=== PATIENT | male | born 1950 | race Caucasian/White ===

== ENCOUNTER → 2022-03-24 11:21 | Outpatient (CLI) | payer MEDICARE, SELFPAY ==
--- NOTE | ~2022-03-24 | US_ITS ---
EXAMINATION: US soft tissue LE RT DATE: 03/24/2022 11:35 INDICATION: Localized swelling, mass or lump at the right lower limb TECHNIQUE: Multiple grayscale and Doppler ultrasound images of the region of concern at the posterior right lower leg were obtained. COMPARISON: None FINDINGS: Palpable abnormality of concern corresponds to a dilated serpiginous thrombosed superficial varicosit y. The dilated portion of the vessel extends proximally 4 cm in length and measures up to 6 mm deniz l diameter. Small amount of surrounding subcutaneous edema. No other abnormal masses or fluid collect ions identified. IMPRESSION: 1. Likely thrombophlebitis with thrombosed superficial varicosity at the site of the palpable abnorma lity. Reviewed, dictated and finalized at location A. IMPRESSION: 1. Likely thrombophlebitis with thrombosed superficial varicosity at the site o f the palpable abnormality.
== END ==
PROVIDERS: PCP Family Medicine; Visit Provider Nurse Practitioner Family
DX: R22.41 Localized swelling, mass and lump, right lower limb (principal)
CPT/HCPCS: 76882

== ENCOUNTER 2022-04-30 08:39 | Outpatient (CLI) | payer MEDICARE, SELFPAY ==
[2022-04-30 08:54] LABS: Hematocrit 40.9 % (42.0-52.0); Hemoglobin 13.4 g/dL (14.0-18.0); Mean Corpuscular HGB Conc 32.8 g/dl (32-36); Mean Corpuscular Hemoglobin 33.3 pg (26-34); Mean Corpuscular Volume 101.5 fl (80-100); Mean Platelet Volume 10.7 fl (7.4-10.4); Platelet Count Result 163 k/mm3 (150-375); Red Blood Count 4.03 M/mm3 (4.6-6.20); Red Cell Distribution Width 13.2 % (11.5-14.5); White Blood Count 4.2 K/mm3 (4.5-10.0)
[2022-04-30 09:18] LABS: Alanine Aminotransferase 46 U/L (6-50); Albumin Level 4.5 g/dL (3.5-5.1); Alkaline Phosphatase 71 U/L (38-126); Aspartate Amino Transferase 51 U/L (17-59); Bilirubin,Total 1.9 mg/dL (0.2-1.3)
== END 2022-04-30 08:40 | disposition home or self-care (01) ==
LOC: ANHLAB 08:42
PROVIDERS: PCP Family Medicine; Visit Provider Nurse Practitioner Family
DX: E78.49 Other hyperlipidemia (principal); I10 Essential (primary) hypertension
CPT/HCPCS: 36415; 80076; 85027

== ENCOUNTER 2022-05-23 09:23 | Outpatient (CLI) | payer MEDICARE, SELFPAY ==
--- NOTE | ~2022-05-23 | US_ITS ---
US abdomen limited INDICATION: Elevated liver function tests PROCEDURE: Realtime right upper abdominal ultrasound. COMPARISON: No prior studies for comparison. FINDINGS: The pancreas is normal without focal mass or pancreatic ductal dilation. Liver echotexture is normal without focal mass or intrahepatic biliary dilatation. There is normal directional flow i n the portal vein. The gallbladder is normal without stones, gallbladder wall thickening or pericholecystic fluid. Comm on bile duct measures 5 mm. There is mild intrahepatic biliary dilatation. No sonographic Gómez's si gn. IMPRESSION: 1: Mild intrahepatic biliary dilatation, nonspecific. Reviewed, dictated and finalized at location A.
== END 2022-05-23 09:24 | disposition home or self-care (01) ==
PROVIDERS: PCP Family Medicine; Visit Provider Nurse Practitioner Family
DX: R17 Unspecified jaundice (principal)
CPT/HCPCS: 76705

== ENCOUNTER 2022-06-02 15:36 | Emergency (ER) | payer MEDICARE, SELFPAY ==
--- NOTE | ~2022-06-02 | XR_ITS ---
XR finger 4th RT min 2V 06/02/2022 15:56 INDICATION: Right fourth finger pain PROCEDURE: 4 views right fourth finger COMPARISON: No prior studies for comparison. FINDINGS: Fracture, dislocation or subluxation is not identified. The soft tissues appear within norm al limits. No foreign bodies are identified. IMPRESSION: 1: NO ACUTE BONE OR JOINT ABNORMALITY IDENTIFIED. Reviewed, dictated and finalized at location A.
[2022-06-02 15:40] VITALS: BP 156/92; PULSE 59; RESP 16; TEMP 36.9; O2SAT 100
--- NOTE | 2022-06-02 16:08 | ED.EXTPRO ---
HPI - Extremity Problem General Chief complaint: Extremity Problem,Nontraumatic Stated complaint: Ring Finger Rt Hand Pain Time Seen by Provider: 06/02/22 15:45 Source: patient Mode of arrival: ambulatory Limitations: no limitations History of Present Illness HPI Narrative: 71 yo M presents with pain and swelling to PIP of R ring finger for approx. 3 wks. Pt was grabbing golf bag out of back of his car and states his golf bag slipped out of his hand and he jammed finger against headrest. Reports that he has still been able to golf and has full ROM but is developing a bump to joint of R ring finger. States he can no longer wear one of his rings due to swelling. All systems reviewed and negative except as noted above. Related Data Home Medications Medication Instructions Recorded Confirmed aspirin 81 mg tablet,delayed 81 mg PO DAILY 07/26/20 06/02/22 release (Adult Low Dose Aspirin) ascorbic acid (vitamin C) 1,000 mg 500 mg PO BID 01/14/22 06/02/22 tablet calcium carbonate 600 mg calcium 600 mg PO DAILY 01/14/22 06/02/22 (1,500 mg) tablet (Calcium) magnesium hydroxide 400 mg (170 mg 400 mg PO DAILY 01/14/22 06/02/22 magnesium) chewable tablet multivitamin 1 tablet PO DAILY 01/14/22 06/02/22 Allergies Allergy/AdvReac Type Severity Reaction Status Date / Time No Known Allergies Allergy Verified 06/02/22 15:39 Review of Systems Review of Systems: CONSTITUTIONAL: Denies fever, chills, or sweats. EYES: Denies visual changes, redness, or discharge. ENT: Denies rhinorrhea, congestion, sore throat, or otalgia. CARDIOVASCULAR: Denies chest pain, palpitations, or edema. RESPIRATORY: Denies cough or dyspnea. GASTROINTESTINAL: Denies abdominal pain, nausea, vomiting, or diarrhea. GENITOURINARY: Denies dysuria or hematuria. SKIN: Denies rash or itching. MUSCULOSKELETAL: Pain and swelling to right ring finger. NEUROLOGIC: Denies headache, numbness, or weakness. PSYCHIATRIC: Denies anxiety or depression. All other systems reviewed are negative, except as documented in HPI. [facility] Past Medical History Medical History (Updated 06/02/22 @ 16:18 by Alida Vaughn NP) Abnormal RBC BMI 24.0-24.9, adult Elevated glucose Elevated LFTs Need for shingles vaccine Screening for prostate cancer Screening, lipid Family History Family History (Updated 03/13/22 @ 15:00 by Aadn Armstrong RN) Father Malignant neoplasm of prostate Sibling Breast cancer Other Family history of malignant neoplasm of breast Hypertension Social History Social History (Updated 03/13/22 @ 15:01 by Adan Armstrong RN) Smoking status: Former smoker Tobacco type: cigarettes Alcohol intake: current Drinks per week: 14 Substance use: never Substance use type: does not use Comments At time of signature, agree with nursing past medical, surgical, social and family history. There is no relevant family history pertinent to the presenting complaint. Exam Narrative: GENERAL: This is a well-nourished, well-developed patient, in no apparent distress. HEAD: normocephalic, atraumatic. EYES: PERRL. Sclera clear/white. Vision is grossly intact. EARS: External ears normal NOSE: External nose normal NECK: Neck supple, non-tender without lymphadenopathy, masses or thyromegaly. CARDIOVASCULAR: Regular rate and rhythm without murmurs, gallops, or rubs. RESPIRATORY: Clear to auscultation. Breath sounds equal bilaterally. No wheezes, rales, or rhonchi. SKIN: warm, Dry, intact with no suspicious lesions or rash, good texture and turgor. NEURO: awake, alert, and oriented to person, place and time. There were no obvious focal neurologic abnormalities. EXTREMITIES: tenderness and swelling to R ring finger, PIP joint. ROM intact. Course Course Level of Care: Express Care Visit Vital Signs Vital signs: Vital Signs Temperature 36.9 C 06/02/22 15:40 Pulse Rate 59 L 06/02/22 15:40 Respiratory Rate 16
== END 2022-06-02 16:20 | disposition home or self-care (01) ==
PROVIDERS: Emergency Provider Nurse Practitioner Family; PCP Family Medicine
DX: S63.634A Sprain of interphalangeal joint of right ring finger, initial encounter (principal); W22.8XXA Striking against or struck by other objects, initial encounter; Z87.891 Personal history of nicotine dependence; Z79.82 Long term (current) use of aspirin
CPT/HCPCS: 29130; 73140; 99213; G0463

== ENCOUNTER 2022-07-08 11:26 | Emergency (ER) | payer MEDICARE, SELFPAY ==
[2022-07-08 11:35] VITALS: BP 168/87; PULSE 55; RESP 12; TEMP 37; O2SAT 100
--- NOTE | 2022-07-08 12:11 | ED.URI ---
HPI - URI/Sore Throat General Chief Complaint: Upper Respiratory Infection Stated Complaint: congestion, sore throat, runny nose Time Seen by Provider: 07/08/22 12:05 Source: patient, RN notes reviewed and old records reviewed Mode of arrival: ambulatory Limitations: no limitations History of Present Illness HPI Narrative: 71-year-old male presents to [facility] care with complaints of sinus congestion, scratchy throat, frontal headache,sinus pressure and post nasal drainage for one week duration. Patient reports that his symptoms started about one week ago when mold count was high and have persisted. Patient states that he has been gargling with some salt water for his throat discomfort,did take an allergy pill on Thursday which helped some. Patient denies any fevers, chills or sweats, denies any shortness of breath acute cough or any body aches. Patient reports that he has had COVID vaccinations and also flu shot this season. Patient reports that he is being worked up for anemia and has scheduled colonoscopy. MD elicited complaint: sore throat, rhinorrhea and nasal congestion Pertinent past history: seasonal allergies Onset (ago): week(s) (1) Pain scale (0-10): 1 Treatments prior to arrival: other (salt water gargles and allergy pill) Related Data Home Medications Medication Instructions Recorded Confirmed aspirin 81 mg tablet,delayed 81 mg PO DAILY 07/26/20 07/08/22 release (Adult Low Dose Aspirin) ascorbic acid (vitamin C) 1,000 mg 500 mg PO BID 01/14/22 07/08/22 tablet calcium carbonate 600 mg calcium 600 mg PO DAILY 01/14/22 07/08/22 (1,500 mg) tablet (Calcium) magnesium hydroxide 400 mg (170 mg 400 mg PO DAILY 01/14/22 07/08/22 magnesium) chewable tablet multivitamin 1 tablet PO DAILY 01/14/22 07/08/22 Allergies Allergy/AdvReac Type Severity Reaction Status Date / Time No Known Allergies Allergy Verified 06/02/22 15:39 Review of Systems Review of Systems: CONSTITUTIONAL: Denies fever, chills, or sweats. EYES: Denies visual changes, redness, or discharge. ENT: positive for rhinorrhea, congestion, scratchy sore throat, no otalgia. CARDIOVASCULAR: Denies chest pain, palpitations, or edema. RESPIRATORY: Denies cough or dyspnea. GASTROINTESTINAL: Denies abdominal pain, nausea, vomiting, or diarrhea. GENITOURINARY: Denies dysuria or hematuria. SKIN: Denies rash or itching. MUSCULOSKELETAL: Denies back pain, joint pain, or myalgia. NEUROLOGIC: Positive for frontal headache,no numbness, or weakness. PSYCHIATRIC: Denies anxiety or depression. All systems reviewed & are unremarkable except as noted in HPI and below PMFSH Past Medical History Medical History (Updated 07/10/22 @ 12:39 by Lisa Hahn NP) Abnormal RBC BMI 24.0-24.9, adult Elevated glucose Elevated LFTs Need for shingles vaccine Screening for prostate cancer Screening, lipid Seasonal allergies Surgical History Surgical History (Updated 07/10/22 @ 12:40 by Lisa Hahn NP) H/O arthroscopy of right knee Family History Family History Father Malignant neoplasm of prostate Sibling Breast cancer Other Family history of malignant neoplasm of breast Hypertension Social History Social History (Updated 07/10/22 @ 12:41 by Lisa Hahn NP) Smoking status: Former smoker Tobacco type: cigarettes Alcohol intake: current Drinks per week: 14 Substance use: never Substance use type: does not use Living arrangements: with family Occupation/Education: retired Gender identity (if verbalized by the patient): Male Comments at time of signature agree with nursing documentation of past medical, surgical, social, and family history. There is no relevant family history pertinent to presenting complaints Exam Narrative: GENERAL: Well-appearing, well-nourished, and in no acute distress. HEAD: Normocephalic, atraumatic. EYES: PERRLA and EOMI. ENT: Nares with
== END 2022-07-08 12:56 | disposition home or self-care (01) ==
PROVIDERS: Emergency Provider Registered Nurse; PCP Family Medicine
DX: J06.9 Acute upper respiratory infection, unspecified (principal); Z20.822 Contact with and (suspected) exposure to COVID-19; Z87.891 Personal history of nicotine dependence; Z79.82 Long term (current) use of aspirin
CPT/HCPCS: 87426; 99213; C9803; G0463

== ENCOUNTER 2022-09-03 11:35 | Emergency (ER) | payer MEDICARE, SELFPAY ==
[2022-09-03 11:45] VITALS: BP 135/68; PULSE 68; RESP 20; TEMP 37.5; O2SAT 100
--- NOTE | 2022-09-03 13:06 | ED.URI ---
HPI - URI/Sore Throat General Chief Complaint: Upper Respiratory Infection Stated Complaint: Cough,Sore Throat,Congestion Source: patient Mode of arrival: ambulatory History of Present Illness HPI Narrative: This is a 72-year-old male who presented to urgent care with complaints of the and chest congestion and a productive cough with brownish sputum and feeling fatigue that started on Thursday. Patient notes that he took Zyrtec and [id number] cold and cough medication. The patient denies SOB, CP, palpitation, extremity numbness, lightheadedness, dizziness, constipation, diarrhea, chills, or fever. Discharge instructions reviewed with patient, as well as provided in writing per nursing staff. The instructions also include specific and strict return/GO TO THE ER as well as f/u information. All questions have been answered, and the patient and/or family deny any further questions with discharge and discharge plan. Patient has a history of bronchitis Related Data Home Medications Medication Instructions Recorded Confirmed aspirin 81 mg tablet,delayed 81 mg PO DAILY 07/26/20 09/03/22 release (Adult Low Dose Aspirin) ascorbic acid (vitamin C) 1,000 mg 500 mg PO BID 01/14/22 09/03/22 tablet calcium carbonate 600 mg calcium 600 mg PO DAILY 01/14/22 09/03/22 (1,500 mg) tablet (Calcium) magnesium hydroxide 400 mg (170 mg 400 mg PO DAILY 01/14/22 09/03/22 magnesium) chewable tablet multivitamin 1 tablet PO DAILY 01/14/22 09/03/22 tamsulosin 0.4 mg capsule 0.4 mg PO DAILY 09/03/22 09/03/22 Allergies Allergy/AdvReac Type Severity Reaction Status Date / Time No Known Allergies Allergy Verified 09/03/22 11:44 [facility] Past Medical History Medical History (Updated 09/03/22 @ 13:06 by REYNA Lim) Abnormal RBC BMI 24.0-24.9, adult Elevated glucose Elevated LFTs Need for shingles vaccine Screening for prostate cancer Screening, lipid Seasonal allergies Surgical History Surgical History (Updated 07/10/22 @ 12:40 by Lisa Hahn NP) H/O arthroscopy of right knee Family History Family History Father Malignant neoplasm of prostate Sibling Breast cancer Other Family history of malignant neoplasm of breast Hypertension Social History Social History (Updated 07/10/22 @ 12:41 by Lisa Hahn NP) Smoking status: Former smoker Tobacco type: cigarettes Alcohol intake: current Drinks per week: 14 Substance use: never Substance use type: does not use Gender identity (if verbalized by the patient): Male Spiritual care concerns: No Exam Narrative: GENERAL: This is a well-nourished, well-developed patient, in no apparent distress. HEAD: normocephalic, atraumatic. EYES: PERRL. Sclera clear/white. Vision is grossly intact. EARS: External ears normal, auditory canals clear and without drainage, TMs normal without perforation. Hearing grossly intact. NOSE: External nose normal with no obvious nasal discharge, nares without redness, no rhinorrhea. THROAT: Mucous membranes moist, posterior pharynx clear. NECK: Neck supple, non-tender without lymphadenopathy, masses or thyromegaly. CARDIOVASCULAR: Regular rate and rhythm without murmurs, gallops, or rubs. RESPIRATORY: Clear to auscultation. Breath sounds equal bilaterally. No wheezes, rales, or rhonchi. GASTROINTESTINAL: Abdomen soft, non-tender, nondistended. Bowel sounds are active. No hepato-splenomegaly, or palpable masses. No guarding. SKIN: warm, intact with no suspicious lesions or rash, good texture and turgor. NEURO: awake, alert, and oriented to person, place and time. There were no obvious focal neurologic abnormalities. EXTREMITIES: Normal range of motion. No edema. No calf tenderness. Course Course Emergency Course: Patient will be treated for bronchitis with Augmentin he was also given Tessalon Perles along with guaifenesin and albuterol Level
== END 2022-09-03 13:08 | disposition home or self-care (01) ==
PROVIDERS: Emergency Provider Nurse Practitioner; PCP Family Medicine
DX: J40 Bronchitis, not specified as acute or chronic (principal); Z20.822 Contact with and (suspected) exposure to COVID-19; Z79.82 Long term (current) use of aspirin; Z87.891 Personal history of nicotine dependence
CPT/HCPCS: 87426; 87804; 99213; C9803; G0463

== ENCOUNTER 2022-09-11 10:23 | Day surgery (SDC) | payer MEDICARE, SELFPAY ==
[2022-08-27 12:54] VITALS: BMI 24.7
[2022-09-11 11:10] VITALS: BP 181/101; PULSE 61; RESP 20; TEMP 37; O2SAT 100; BMI 24.5
[2022-09-11] MEDS: LACTATED RINGERS 1,000 ML 150 ML IV CONT (11:18)
--- NOTE | 2022-09-11 12:00 | PM.HPGS ---
History of Present Illness History of Present Illness Consent: Risks, benefits, and alternatives have been discussed and questions answered. Patient agrees to proceed with procedure. Chief complaint: Neoplam Screening Narrative: Mango Jacques is a 72 year old male Presents for screening colonoscopy. Patient's current weight appetite and bowel movements are normal. Patient denies abdominal pain. He has had no bleeding. Family history noncontributory. Last colonoscopy 10 years ago was unremarkable. Review of Systems Review of Systems: Review of systems noncontributory. [facility] Past Medical History Medical History (Updated 09/04/22 @ 00:01 by Madeline Martínez) Abnormal RBC BMI 24.0-24.9, adult Elevated glucose Elevated LFTs Need for shingles vaccine Screening for prostate cancer Screening, lipid Seasonal allergies Surgical History Surgical History (Updated 07/10/22 @ 12:40 by Lisa Hahn NP) H/O arthroscopy of right knee Family History Family History Father Malignant neoplasm of prostate Sibling Breast cancer Other Family history of malignant neoplasm of breast Hypertension Social History Social History (Updated 07/10/22 @ 12:41 by Lisa Hahn NP) Smoking status: Former smoker Tobacco type: cigarettes Alcohol intake: current Drinks per week: 14 Substance use: never Substance use type: does not use Living arrangements: with family Gender identity (if verbalized by the patient): Male Spiritual care concerns: No Meds Home Medications and Allergies Home Medications Medication Instructions Recorded Confirmed Type aspirin 81 mg tablet,delayed 81 mg PO DAILY 07/26/20 09/11/22 History release (Adult Low Dose Aspirin) ascorbic acid (vitamin C) 1,000 mg 500 mg PO BID 01/14/22 09/11/22 History tablet calcium carbonate 600 mg calcium 600 mg PO DAILY 01/14/22 09/11/22 History (1,500 mg) tablet (Calcium) magnesium hydroxide 400 mg (170 mg 400 mg PO DAILY 01/14/22 09/03/22 History magnesium) chewable tablet multivitamin 1 tablet PO DAILY 01/14/22 09/03/22 History atorvastatin 10 mg tablet 10 mg PO DAILY #90 tabs 04/14/22 09/11/22 Rx albuterol sulfate 90 mcg/actuation 1 inh inhalation QID PRN shortness 09/03/22 09/11/22 Rx aerosol inhaler (ProAir HFA) of breath or wheezing #6.7 grams amoxicillin 500 mg-potassium 1 tablet PO Q12H 7 days #14 tabs 09/03/22 09/11/22 Rx clavulanate 125 mg tablet (Augmentin) benzonatate 200 mg capsule 200 mg PO BID PRN cough #30 caps 09/03/22 09/11/22 Rx guaifenesin 400 mg tablet 400 mg PO QID PRN congestion #30 09/03/22 09/11/22 Rx tabs tamsulosin 0.4 mg capsule 0.4 mg PO DAILY 09/03/22 09/03/22 History Allergies Allergy/AdvReac Type Severity Reaction Status Date / Time No Known Allergies Allergy Verified 09/11/22 11:13 Vital Signs Vital Signs - 24 hr 09/11/22 11:10 Temperature 98.6 F Pulse Rate 61 Respiratory Rate 20 Blood Pressure 181/101 H Pulse Oximetry 100 Oxygen Delivery Room Air Exam Narrative: Physical exam reveals patient be alert. Vital signs stable. HEENT exam is unremarkable. Patient is anicteric. Lungs are clear to auscultation and percussion. Heart is without murmur or extra sounds. Abdomen bowel sounds are present soft nontender with no organomegaly. Digital external rectal exam normal. Assessment and Plan Assessment and plan (1) Screening for malignant neoplasm of colon: Code(s): Z12.11 - Encounter for screening for malignant neoplasm of colon Status: Acute Assessment and Plan: Patient presents for screening colonoscopy. Appears to be at average risk of colon polyps. Further recommendations will be given after endoscopy.
--- NOTE | 2022-09-11 12:13 | WPDANESEPPF ---
Anes - Initial Pre Proc Eval Procedure: Operation Date: 09/11/22 12:30 Proposed Procedures p Screening Colonoscopy - Javid Mccormack MD Date/Time: 09/11/22 12:13 Surgeon: Javid Mccormack MD Pre Op Diagnosis: Neoplam Screening Patient Data Age: 72 Gender: M Height: 1.98 m Weight: 96.1 kg Last Vital Signs Temp 37.0 C 09/11/22 11:10 Pulse 61 09/11/22 11:10 Resp 20 09/11/22 11:10 BP 181/101 H 09/11/22 11:10 Pulse Ox 100 09/11/22 11:10 O2 Del Method Room Air 09/11/22 11:10 Allergies Allergy/AdvReac Type Severity Reaction Status Date / Time No Known Allergies Allergy Verified 09/11/22 11:13 Home Medications Medication Instructions Recorded Confirmed Type aspirin 81 mg tablet,delayed 81 mg PO DAILY 07/26/20 09/11/22 History release (Adult Low Dose Aspirin) ascorbic acid (vitamin C) 1,000 mg 500 mg PO BID 01/14/22 09/11/22 History tablet calcium carbonate 600 mg calcium 600 mg PO DAILY 01/14/22 09/11/22 History (1,500 mg) tablet (Calcium) magnesium hydroxide 400 mg (170 mg 400 mg PO DAILY 01/14/22 09/03/22 History magnesium) chewable tablet multivitamin 1 tablet PO DAILY 01/14/22 09/03/22 History atorvastatin 10 mg tablet 10 mg PO DAILY #90 tabs 04/14/22 09/11/22 Rx albuterol sulfate 90 mcg/actuation 1 inh inhalation QID PRN shortness 09/03/22 09/11/22 Rx aerosol inhaler (ProAir HFA) of breath or wheezing #6.7 grams amoxicillin 500 mg-potassium 1 tablet PO Q12H 7 days #14 tabs 09/03/22 09/11/22 Rx clavulanate 125 mg tablet (Augmentin) benzonatate 200 mg capsule 200 mg PO BID PRN cough #30 caps 09/03/22 09/11/22 Rx guaifenesin 400 mg tablet 400 mg PO QID PRN congestion #30 09/03/22 09/11/22 Rx tabs tamsulosin 0.4 mg capsule 0.4 mg PO DAILY 09/03/22 09/03/22 History Patient hx anesthesia problems: none Family hx anesthesia problems: none Results Review: All pre-operative results and documents have been reviewed as part of the pre-operative evaluation. [facility] Past Medical History Medical History Abnormal RBC BMI 24.0-24.9, adult Elevated glucose Elevated LFTs Need for shingles vaccine Screening for prostate cancer Screening, lipid Seasonal allergies Surgical History Surgical History H/O arthroscopy of right knee Family History Family History Father Malignant neoplasm of prostate Sibling Breast cancer Other Family history of malignant neoplasm of breast Hypertension Social History Social History Smoking status: Former smoker Tobacco type: cigarettes Alcohol intake: current Drinks per week: 14 Substance use: never Substance use type: does not use Living arrangements: with family Gender identity (if verbalized by the patient): Male Spiritual care concerns: No Anes - Eval Final PreProcedure Day of Procedure 09/11/22 12:13 Patient weight: normal Heart: regular rate and rhythm Lungs: clear to auscultation Airway: Mallampati scale class II Neurological: alert and oriented Last oral intake: >/= 8 hours ASA classification: II Emergent: no Anesthetic plan: proceed Results Review: All pre-operative results and documents have been reviewed as part of the pre-operative evaluation. Informed Consent: The patient's anesthetic plan and its attendant risks and benefits were discussed with the patient/family/POA. Questions were solicited and answers provided to the satisfaction of the patient/family/POA.
[2022-09-11 12:38] VITALS: BP 135/88; PULSE 68; RESP 16; O2SAT 99
--- NOTE | 2022-09-11 12:43 | WPDANESPN ---
Anes - Prog Note Post-Op Date/Time: 09/11/22 12:43 Cardiovascular status: normal Respiratory status: normal Airway patency: baseline Mental status: baseline Post-Op hydration status: normal Vital Signs: Last Vital Signs Temp 37.0 C 09/11/22 11:10 Pulse 61 09/11/22 11:10 Resp 20 09/11/22 11:10 BP 181/101 H 09/11/22 11:10 Pulse Ox 100 09/11/22 11:10 O2 Del Method Room Air 09/11/22 11:10 Pain Score (VAS): 0/10 I/O: Intake & Output 09/10/22 09/11/22 09/11/22 23:59 07:59 15:59 Intake Total 400 Balance 400 Patient Feedback: Patient satisfied with anesthetic care.
[2022-09-11 12:48] VITALS: BP 135/95; PULSE 56; RESP 16; O2SAT 100
[2022-09-11 12:58] VITALS: BP 149/109; PULSE 56; RESP 16; O2SAT 100
--- NOTE | 2022-09-11 12:58 | SUR.PHASEII ---
PT AWAKE AND ALERT. DENIES PAIN. DRINKING COFFEE.
== END 2022-09-11 13:11 | disposition home or self-care (01) ==
PROVIDERS: PCP Family Medicine; Visit Provider Internal Medicine Gastroenterology
PROC: 0DJD8ZZ Inspection of Lower Intestinal Tract, Via Natural or Artificial Opening Endoscopic (ICD-10-PCS; CPT 45378; principal; 2022-09-11 12:30)
DX: Z12.11 Encounter for screening for malignant neoplasm of colon (principal)
CPT/HCPCS: 45378

== ENCOUNTER 2023-02-17 13:33 | Emergency (ER) | payer MEDICARE, SELFPAY ==
[2023-02-17 13:52] VITALS: BP 120/73; PULSE 74; RESP 16; TEMP 36.2; O2SAT 99
--- NOTE | 2023-02-17 14:09 | ED.URI ---
HPI - URI/Sore Throat General Chief Complaint: Upper Respiratory Infection Stated Complaint: sorethroat,cough Time Seen by Provider: 02/17/23 14:12 Source: patient and RN notes reviewed Mode of arrival: ambulatory Limitations: no limitations History of Present Illness HPI Narrative: 72-year-old male presented for complaint of sinus congestion, postnasal drainage, sore throat, cough, and body aches over the last 4-5 days. He denies shortness of breath, wheezing, nausea, vomiting, fevers or chills. Taking aspirin for body aches and Robitussin for the cough. He denies known sick contacts. MD elicited complaint: cough Related Data Home Medications Medication Instructions Recorded Confirmed aspirin 81 mg tablet,delayed 81 mg PO DAILY 07/26/20 02/17/23 release (Adult Low Dose Aspirin) ascorbic acid (vitamin C) 1,000 mg 500 mg PO BID 01/14/22 02/17/23 tablet calcium carbonate 600 mg calcium 600 mg PO DAILY 01/14/22 02/17/23 (1,500 mg) tablet (Calcium) magnesium hydroxide 400 mg (170 mg 400 mg PO DAILY 01/14/22 02/17/23 magnesium) chewable tablet multivitamin 1 tablet PO DAILY 01/14/22 02/17/23 Allergies Allergy/AdvReac Type Severity Reaction Status Date / Time No Known Allergies Allergy Verified 02/17/23 13:46 Review of Systems Review of Systems: CONSTITUTIONAL: Endorses malaise, denies chills, sweats, fever EYES: Denies visual changes, redness, or discharge ENT: Reports rhinorrhea, congestion, otalgia, sore throat CARDIOVASCULAR: Denies chest pain, palpitations, edema RESPIRATORY: Reports cough, post nasal drainage. Denies dyspnea GASTROINTESTINAL: Denies abdominal pain, nausea, vomiting, diarrhea SKIN: Denies rash or itching MUSCULOSKELETAL: Denies myalgia NEUROLOGIC: Denies headache PMFSH Past Medical History Medical History Abnormal RBC BMI 24.0-24.9, adult Elevated glucose Elevated LFTs Need for shingles vaccine Screening for prostate cancer Screening, lipid Seasonal allergies Surgical History Surgical History H/O arthroscopy of right knee Family History Family History Father Malignant neoplasm of prostate Sibling Breast cancer Other Family history of malignant neoplasm of breast Hypertension Social History Social History Smoking status: Former smoker Tobacco type: cigarettes Alcohol intake: current Drinks per week: 14 Substance use: never Substance use type: does not use Living arrangements: with family Occupation/Education: retired Gender identity (if verbalized by the patient): Male Spiritual care concerns: No Exam Narrative: GENERAL: well-appearing, nontoxic no acute distress. HEAD: Normocephalic EYES: PERRLA, conjunctivae clear ENT: Mucous membranes moist. TMs pearly miranda with dull light reflex bilaterally; no tragal tenderness. Oropharynx without erythema,lesions or exudate, no drooling, no hoarseness, no trismus, uvula midline. No tripod positioning, muffled voice, soft palate or pharyngeal wall bulging NECK: Supple. No lymphadenopathy CHEST: Clear to auscultation, breath sounds equal. No wheezing, rhonchi, rales, or stridor. No respiratory distress, speaks in full sentences. HEART: Regular rate and rhythm. No murmur heard. SKIN: Warm, dry, no rash. NEURO: Alert and oriented x3. PSYCH: Normal mood and affect Course Course Emergency Course: Patient is aware of diagnosis, understands and agrees to treatment plan. Anticipatory guidance given. Patient agrees to follow-up as directed and is aware of reasons to seek care at the emergency department. Portions of this record may have been created with voice recognition software Level of Care: Express Care Visit Vital Signs Vital signs: Vital Signs Temperature 97.
== END 2023-02-17 14:22 | disposition home or self-care (01) ==
PROVIDERS: Emergency Provider Nurse Practitioner Family; PCP Family Medicine
DX: J06.9 Acute upper respiratory infection, unspecified (principal); Z79.82 Long term (current) use of aspirin; Z87.891 Personal history of nicotine dependence; Z20.822 Contact with and (suspected) exposure to COVID-19
CPT/HCPCS: 87081; 87426; 87880; 99213; C9803; G0463

== ENCOUNTER 2023-02-24 16:17 | Outpatient (CLI) | payer MEDICARE, SELFPAY ==
--- NOTE | ~2023-02-24 | XR_ITS ---
XR chest 2V DATE: 02/24/2023 16:30 INDICATION: Cough, congestion. Acute bronchitis. TECHNIQUE: PA and lateral views COMPARISON: None FINDINGS: There is bilateral hyperinflation with relative flattening the diaphragm and increased retr osternal airspace, consistent with COPD. Heart size is within normal range. There is aortic calcification and mild unfolding. No hilar or medi astinal enlargement is evident. There is minimal infiltrate along the minor fissure in the right upper lobe. There is minimal bluntin g of the right costophrenic angle. There is osteopenia. There is scoliosis and degenerative spurring of the thoracolumbar spine. IMPRESSION: Mild anterior segment right upper lobe infiltrate, small right pleural effusion COPD Aortic atherosclerosis Reviewed, dictated and finalized at location A. IMPRESSION: Mild anterior segment right upper lobe infiltrate, small right pleu ral effusion COPD Aortic atherosclerosis
== END 2023-02-24 16:18 | disposition home or self-care (01) ==
LOC: ANHIMG 16:20
PROVIDERS: PCP Family Medicine; Visit Provider Physician Assistant Medical
DX: J20.9 Acute bronchitis, unspecified (principal); J90 Pleural effusion, not elsewhere classified; J44.9 Chronic obstructive pulmonary disease, unspecified; I70.0 Atherosclerosis of aorta
CPT/HCPCS: 71046

== ENCOUNTER 2023-04-01 07:58 | Outpatient (CLI) | payer MEDICARE, SELFPAY ==
--- NOTE | 2023-04-01 12:45 | WPDPFTINT ---
PFT Procedure Performed PFT Procedure Performed Spirometry with Pre/Post Bronchodilator Plethysmography (Lung Vol) Diffusing Cap (DLCO) Flow Vol Loop PFT Interpretation This is a pulmonary function test with pre and post-bronchodilator spirometry, plethysmography and diffusing capacity. The test was performed and results interpreted in accordance with the 2019 and 2005 ATS/ERS Task Force guidelines respectively using the Global Lung Function Initiative-2012 reference equations. Patient demonstrated good effort and cooperation. Reproducibility criteria were met. The quality of the pre bronchodilator spirometry maneuver was Grade A and post bronchodilator spirometry maneuver was Grade A. Findings: Spirometry: The contour the inspiratory and expiratory flow tracing are normal. The pre bronchodilator FVC is 5.61 L, 104% predicted. The pre bronchodilator FEV1 is 4.00 L, 100% predicted. The FEV1: FVC ratio 71%. The post bronchodilator FVC is 5.56 L, representing a 1% decrease. The post bronchodilator FEV1 is 4.04 L, representing a 1% increase. The post bronchodilator FEV1: FVC ratio is 73%. Plethysmography: The total lung capacity is 9.04 L, 105% predicted. The functional residual capacity is 5.36 L, 114% predicted. The residual volume is 3.19 L, 109% predicted. Diffusing capacity: The diffusing capacity unadjusted for hemoglobin and carboxyhemoglobin is 29.9, 103% predicted. The diffusing capacity adjusted for alveolar volume is 3.51, 103% predicted. Impression: The spirometry is normal without evidence of an obstructive abnormality. There is no significant improvement after inhaling a single dose of albuterol. The lung volumes are normal. The diffusing capacity is normal. There are no prior studies for comparison
== END 2023-04-01 07:59 | disposition home or self-care (01) ==
LOC: ANHPFT 07:59
PROVIDERS: PCP Family Medicine; Visit Provider Physician Assistant Medical
DX: R09.89 Other specified symptoms and signs involving the circulatory and respiratory systems (principal)
CPT/HCPCS: 94060; 94726; 94729

== ENCOUNTER 2023-05-28 10:31 | Outpatient (CLI) | payer MEDICARE, SELFPAY ==
--- NOTE | 2023-06-02 15:58 | WPDHOLTEREM ---
Holter/Event Monitor Holter/Event Monitor Date of procedure: 05/28/23 Holter/Event Procedure: 24 Hr Holter Monitor Indications: PVC Conclusion: 1. 24 hour holter monitor on 05/28/23. 2. Underlying rhythm is sinus rhythm. HR range 33-104 bpm; average HR 57 bpm. HR at 33 bpm was at 05:21. 3. There are 1,889 premature supraventricular complexes and 49 supraventricular couplets. No supraventricular tachycardia. 4. There are 235 premature ventricular complexes, 35 ventricular bigeminy and 25 ventricular trigeminy. No ventricular tachycardia. 5. Baseline right bundle branch block. No sinoatrial or atrioventricular blocks. No significant pauses greater than 2 seconds. 6. No symptoms available for correlation.
== END 2023-05-28 10:32 | disposition home or self-care (01) ==
PROVIDERS: PCP Family Medicine; Visit Provider Physician Assistant Medical
DX: I49.49 Other premature depolarization (principal); I45.10 Unspecified right bundle-branch block
CPT/HCPCS: 93225; 93226

== ENCOUNTER 2024-10-23 10:50 | Emergency (ER) | payer MEDICARE, SELFPAY ==
--- NOTE | 2024-10-23 10:52 | ED.URI ---
HPI - URI/Sore Throat General Chief Complaint: Upper Respiratory Infection Stated Complaint: CONGESTION/COUGH/SORE THROAT/SWOLLEN TONSIL Time Seen by Provider: 10/23/24 10:52 Source: patient Mode of arrival: ambulatory Limitations: no limitations History of Present Illness HPI Narrative: Mango is a 74-year-old male patient presenting to the clinic today with complaints of chest congestion, cough, sore throat, and left swollen tonsil. He reports symptoms started 5 days ago. Denies any chest pain or shortness of breath. He overall feels fatigued. Cough is productive at times and clear MD elicited complaint: cough, sore throat, nasal congestion and other (Chest congestion) Related Data Home Medications Medication Instructions Recorded Confirmed aspirin 81 mg tablet,delayed 81 mg PO DAILY 07/26/20 08/02/24 release (Adult Low Dose Aspirin) ascorbic acid (vitamin C) 1,000 mg 500 mg PO BID 01/14/22 08/02/24 tablet calcium carbonate (Calcium 600) 600 mg PO DAILY 01/14/22 08/02/24 magnesium hydroxide 400 mg (170 mg 400 mg PO DAILY 01/14/22 08/02/24 magnesium) chewable tablet multivitamin 1 tablet PO DAILY 01/14/22 08/02/24 finasteride 5 mg tablet 5 mg PO DAILY 08/02/24 08/02/24 losartan 25 mg tablet 25 mg PO DAILY 08/02/24 08/02/24 Allergies Allergy/AdvReac Type Severity Reaction Status Date / Time No Known Allergies Allergy Verified 08/02/24 14:55 Review of Systems Review of Systems: Pertinent positives per HPI. Patient denies any fever, chills, rash, headache, visual changes, dizziness, cough, shortness of breath, chest pain, palpitations, nausea, vomiting, diarrhea, constipation, abdominal pain, or any urinary issues. [facility] Past Medical History Medical History Abnormal RBC Acute non-recurrent frontal sinusitis Elevated glucose Elevated LFTs Need for shingles vaccine Screening for malignant neoplasm of colon Screening for thyroid disorder Seasonal allergies Urinary frequency Surgical History Surgical History H/O arthroscopy of right knee Family History Family History Father Malignant neoplasm of prostate Hypertension Heart disease Sibling Breast cancer Mother Breast cancer Other Family history of malignant neoplasm of breast Social History Social History Smoking status: Former smoker Tobacco type: cigarettes Second hand tobacco smoke exposure: Yes Alcohol intake: current Drinks per week: 14 Substance use: never Substance use type: does not use Do You Feel Safe in your Home?: Yes Lack of Transportation: No Lack of Food: Never True Current Housing: I Have Housing Concerned About Future Housing: No Difficulty Paying Gas/Electric Bills: No Difficulty Paying for Meds: No Currently Unemployed: No Education: Master's Degree or Higher Difficulty w/ Childcare or Family Care: No Living arrangements: with family Occupation/Education: retired 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 There is no relevant family history pertinent to the patient complaint. Exam Narrative: General: Well-developed, well nourished, in no apparent distress Head: Normocephalic, atraumatic Eyes: Pupils equally round and reactive to light bilaterally, EOM intact, sclera and conjunctive clear, no discharge, lids normal Ears: TMs intact and clear, ear canals clear, no drainage, grossly hearing normal. Nose: Nares patent, no discharge, no inflammation, no sinus tenderness. Mouth: Oral pharynx without lesions or masses, good dentition, MMM. Neck: Supple, trachea midline, no enlargement of anterior or posterior cervical nodes, no thyroid masses or goiter palpable. Cardio: Regular rate and rhythm, s1 and s2 normal, no murmur appreciated. Resp: Clear to auscultation bilaterally, no rhonchi, rales, wheezing or rubs Course Course Emergency Course: Portions of this record may have been created with voice recognition software. Level of Care: Express Care Visit Vital Signs Vital signs: Vital signs reviewed MDM - URI/Sore Throat MDM Narrative Medical decision making narrative: At the time of visit patient is resting comfortably on the exam table. Patient appears to be nontoxic. Labs: Strep test was performed and was negative in the clinic today. We will send for culture. Plan: I suspect patient has acute bronchitis. Prescription for albuterol inhaler, Tessalon Perles, and prednisone was sent to the pharmacy. Supportive measures were discussed with the patient and they voiced understanding discharge instructions and agrees to treatment plan. Return precautions reviewed Differential Diagnosis Differential diagnosis: Likely upper respiratory infection, otitis media, sinusitis, viral infection, bronchitis, influenza, pharyngitis and other (COVID) Discharge Plan Discharge Clinical Impression: Acute bronchitis Qualifiers: Bronchitis organism: unspecified organism Qualified Code(s): J20.9 - Acute bronchitis, unspecified Patient Disposition: Home, Self-Care Condition: Stable Instructions: Antibiotic Form, Acute Bronchitis (ED) Additional Instructions: Strep test was negative in the clinic today. We will send strep for culture if this comes back positive we will contact him place you on antibiotics at that time. Take prescription medications only as prescribed-albuterol inhaler, prednisone, and Tessalon Perles Increase fluids and stay well hydrated Tylenol/motrin for pain/fever Flonase and OTC antihistamines as directed Vicks vapor rub to open sinuses Sinus rinses for congestion Cepacol spray, cough drops, throat lozenges, warm tea with honey/lemon, gargle salt water to soothe throat BRAT diet for diarrhea Clear liquids x 24 hours then advance as tolerated for nausea/vomiting Go to the ED if you develop a worsening in your condition- high fever not controlled by Tylenol or Motrin, dehydration, weakness, lethargy, shortness of breath, or chest pain. Follow up with your PCP in 3-5 days if symptoms persist. Prescriptions: New benzonatate 200 mg capsule 200 mg PO TID 7 Days Qty: 21 0RF albuterol sulfate 90 mcg/actuation HFA aerosol inhaler 2 puff inhalation Q4-6H PRN (Reason: shortness of breath or wheezing) 30 Days Qty: 8.5 0RF prednisone 20 mg tablet 40 mg PO DAILY 5 Days Qty: 10 0RF No Action aspirin [Adult Low Dose Aspirin] 81 mg tablet,delayed release (DR/EC) 81 mg PO DAILY multivitamin Tablet 1 tablet PO DAILY calcium carbonate [Calcium 600] 600 mg calcium (1,500 mg) tablet 600 mg PO DAILY ascorbic acid (vitamin C) 1,000 mg tablet 500 mg PO BID magnesium hydroxide 400 mg (170 mg magnesium) tablet,chewable 400 mg PO DAILY losartan 25 mg tablet 25 mg PO DAILY finasteride 5 mg tablet 5 mg PO DAILY albuterol sulfate [ProAir HFA] 90 mcg/actuation HFA aerosol inhaler 1 inh inhalation QID PRN (Reason: shortness of breath or wheezing) Qty: 6.7 0RF atorvastatin 10 mg tablet 10 mg PO DAILY Qty: 90 2RF tamsulosin 0.4 mg capsule See Rx Instructions .ROUTE .COMPLEX Qty: 180 0RF Dose Instruction: TAKE 2 CAPSULES BY MOUTH DAILY Rx Instructions: TAKE 2 CAPSULES BY MOUTH DAILY Follow-up/Referrals: Jair Jaramillo MD [Primary Care Provider] - Time of Disposition: 11:17 Quality NIHSS Nursing Documentation ED NIHSS nursing documentation: reviewed/agree
[2024-10-23 11:02] VITALS: BP 134/83; PULSE 76; RESP 16; TEMP 36.6; O2SAT 100
[2024-10-23 11:16] LABS: EDSTREPNEGPOS1 Negative (Negative)
== END 2024-10-23 11:21 | disposition home or self-care (01) ==
PROVIDERS: Emergency Provider Nurse Practitioner Family; PCP Family Medicine
DX: J20.9 Acute bronchitis, unspecified (principal); Z87.891 Personal history of nicotine dependence
CPT/HCPCS: 87081; 87880; 99213; G0463

== ENCOUNTER 2025-07-05 09:31 | Outpatient (CLI) | payer MEDICARE, SELFPAY ==
--- NOTE | ~2025-07-05 | XR_ITS ---
EXAMINATION: XR lg joint inject/asp w image DATE: 07/05/2025 10:36 INDICATION: Primary osteoarthritis of the left hip TECHNIQUE: A time-out was performed to verify the patient's name, date of , and procedure to b e performed. The procedure including the risks, benefits, and alternatives was discussed with the pat ient. Risks discussed included bleeding and infection. The patient understood the risks and agreed to proceed. The skin overlying the left hip joint was prepped and draped in usual sterile fashion. An esthetic was administered with 1% lidocaine subcutaneously. A 22 G needle was advanced under fluoros copic guidance into the joint. Injection of 1 mL of Omnipaque 240 confirmed intra-articular position of the needle. Subsequently, injectate consisting of 5 mm a 4:1 mixture of 1% lidocaine: 40 mg/mL D epo-Medrol for a total dosage of 40 mg Depo-Medrol was instilled. Washout of contrast was seen confir fabiola intra-articular administration. The needle was removed and the entry site was cleaned and dresse d. There were no immediate complications. Fluoroscopy exposure time was 0.1 minutes. The total numbe r of images was 2. FINDINGS: Real-time fluoroscopy demonstrates the needle and contrast in the left hip joint. Patient's pain prior to procedure:3/10. Patient's pain following the procedure: 0/10. IMPRESSION: 1. Successful left hip joint injection of local anesthetic and steroid with decrease in the patient's presenting pain. Reviewed, dictated and finalized at location A. IMPRESSION: 1. Successful left hip joint injection of local anesthetic and steroid with dec rease in the patient's presenting pain.
--- OUTSIDE RECORDS SUMMARY | 2025-07-05 09:43 | XMS_ITS | Clinical Summary ---
Author Organization [facility] Address [address] [place] [address] Care Team Providers Care Drawer In Stitch Bonding Machine Name Role Phone Celestino Simpson MD Primary Care Provider Gavin zhao Social History Tobacco Use Types Packs/Day Years Used Date Smoking Tobacco: Never Assessed Sex and Gender Information Value Date Recorded Sex Assigned at Not on file Legal Sex Male 5:21 PM CDT Gender Identity Not on file Sexual Orientation Not on file Last Filed Vital Signs Vital Sign Reading Time Taken Comments Blood Pressure 130/90 07/09/2017 1:30 PM CDT Pulse 64 07/09/2017 1:30 PM CDT Temperature - - Respiratory Rate - - Oxygen Saturation - - Inhaled Oxygen Concentration - - Weight 103.9 kg (229 lb) 07/09/2017 1:30 PM CDT Height 198.1 cm (6' 6) 07/09/2017 1:30 PM CDT Body Mass Index 26.46 07/09/2017 1:30 PM CDT Plan of Treatment Health Maintenance Due Date Last Done Comments Colorectal Cancer Screening Colonoscopy (10 Years) 1950 Hepatitis C 1968 DTaP, Tdap and Td Vaccines ( 1 - Tdap) 1969 Zoster Vaccines (2 of 3) 05/24/2013 03/29/2013 Pneumococcal Vaccine: 50+ Ye ars (2 of 2 - PPSV23) 07/09/2018 07/09/2017 COVID-19 Vaccine (1 - 2023-2 5 season) 2024 RSV Immunization or 60+ Years (1 - 1-dose 75+ series) 2025 Meningococcal B Vaccine Aged Out No l onger eligible based on patient's age to complete this topic Meningococcal Vaccine Aged Out No cynthia nanci eligible based on patient's age to complete this topic RSV Immunizations Under 20 Months Aged Out No longer eligible based on patient's age to complete this topic Procedures Procedure Name Priority Date/Time Associated Diagnosis Comments COLONOSCOPY Routine ADVICE LINE RN from Last 3 Months or Most Recently Relevant to Health Maintenance Results * Colonoscopy ( ADVICE LINE RN) Narrative [facility] TO EPIC CONVERSION - ADVICE LINE RN Documented hx of procedure Procedure Note Md Generic MD Maurice - 09/26/2018 Documented hx of procedure us Generic Conversion Md RODRIGUEZ GI PROCEDURE ORDERABLES Final Result [facility] TO EPIC CONVERSION from Last 3 Months or Most Recently Relevant to Health Maintenance Care Teams Drawer In Stitch Bonding Machine Relationship Specialty Start Date End Date Celestino Simpson MD PCP - General 11/04/16
--- OUTSIDE RECORDS SUMMARY | 2025-07-05 09:43 | XMS_ITS | Clinical Summary ---
Author Organization [facility] [address] [facility] [address] [place] [address] Care Team Providers Care Metal Expediter Name Role Phone Jair Jaramillo MD Primary Care Provider [phone] Allergies No known active allergies Medications tamsulosin (FLOMAX) 0.4 mg extended release capsule Take 2 capsules (0.8 mg total) by mouth daily Active atorvastatin (LIPITOR) 10 mg tablet Take 1 tablet (10 mg total) by mouth daily Active Gemtesa 75 mg tablet Take 1 tablet by mouth daily 3 Active ascorbic acid (VITAMIN C) 1,000 mg tablet Take 1 tablet (1,000 mg total) by mouth daily Active calcium carbonate-vitam in D3 1500 mg (600 mg elemental) -200 units per tablet Take 1 tablet by mouth daily Active aspirin 81 mg enteric coated tablet Take 1 tablet (81 mg total) by mouth daily Active vitamin E 400 unit capsule Take 1 capsule (400 Units total) by mouth daily Active magnesium oxide (MAG-OX) 250 mg (150.8 mg elemental) tablet Take 1 tablet (250 mg total) by mouth 2 (two) times a day Active iron,carbonyl-v itamin C 65 mg iron- 125 mg tablet,delayed release (DR/EC) Take by mouth Active melatonin 10 mg tablet Take 1 tablet (10 mg total) by mouth daily Active NOT IN DATABASE, PRESCRIPTION, Drug name: Nugenix Dose: Route: oral Frequency: take 3 tab/cap once daily Testosterone supplement Active losartan (COZAAR) 25 mg tablet TAKE 1 TABLET(25 MG) BY MOUTH DAILY 90 tablet 3 4 Active finasteride (PROSCAR) 5 mg tablet Take 1 tablet (5 mg total) by mouth daily 5 Active triamcinolone (KENALOG) 0.1 % cream Apply topically 2 (two) times a day 5 Active Active Problems Problem Noted Date Diagnosed Date Other premature depolarization 07/30/2023 Block, 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 Medical History Medical History Date Comments Hypertension Family History Medical History Relation Name Comments Breast cancer Mother Breast cancer Sister Relation Name Status Comments Mother Sister Social History Tobacco Use Types Packs/Day Years Used Date Smoking Tobacco: Former Cigarettes Smokeless Tobacco: Never Tobacco Cessation:Counseling Given: Not Answered Sex and Gender Information Value Date Recorded Sex Assigned at Not on file 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 Gender Identity Not on file Sexual Orientation Not on file Obstetrics History Last Filed Vital Signs Vital Sign Reading Time Taken Comments Blood Pressure 158/90 10/01/2023 4:07 PM MANAGER OF BUSINESS Pulse 55 10/01/2023 4:07 PM MANAGER OF BUSINESS Temperature - - Respiratory Rate - - Oxygen Saturation 98% 10/01/2023 4:07 PM MANAGER OF BUSINESS Inhaled Oxygen Concentration - - Weight 97.5 kg (215 lb) 03/08/2025 10:15 AM CDT stated Height 195.6 cm (6' 5) 03/08/2025 10:15 AM CDT Body Mass Index 25.5 03/08/2025 10:15 AM CDT Plan of Treatment Health Maintenance Due Date Last Done Comments Colon Cancer Screening-Colonoscopy 1950 Depression Screening 1950 Fall Risk Assessment 1950 Hepatitis C Screening 1950 Hepatitis B Screening 1968 Zoster Vaccine (1 of 2) 2000 DTaP/Tdap/Td Vaccine (1 - Tdap) 04/27/2007 7, 09/08/1994 Abdominal Aortic Aneurysm (A AA) Screen 2015 Well Visit 65+ 2015 Covid-19 Vaccine (2023-2 5 season) 2024 09/01/2022, 03/03/2022, 09/17/2021, Additional history exists Influenza Vaccine (#1) 2025 2, 08/19/2021, 08/08/2020, Additional history exists Pneumococcal vaccine 65+ Completed 08/06/2018, 06/23 Insurance [facility] [employer] MEDICARE [facility] Care Teams Metal Expediter Relationship Specialty Start Date End Date Jair Jaramillo MD PCP - General Family Medicine 06/11/23
--- OUTSIDE RECORDS SUMMARY | 2025-07-05 09:43 | XMS_ITS | Encounter Summary ---
Author Organization [facility] [place] Address [address] [place] [address] [place] [address] Care Team Providers Care Viscosity Worker Name Role Phone Unavailable Primary Care Provider Unavailabl e Encounter Details Date Type Department Care Team (Late st Contact Info) Description 03/12/2023 Lab Requisition 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 Received: 03/12/2023 12:50 PM Pathologist: Sneha Perez MD Specimen: Skin, right side neck 11:27 AM CDT DERMATOPATHOLOGY LABORATORY Final Diagnosis Specimen A. SKIN, right side neck: SEBORRHEIC KERATOSIS, IRRITATED (L82.0) 11:27 AM CDT DERMATOPATHOLOGY LABORATORY at 1127 CDT Clinical History R/O BCC 3 11:27 AM T DERMATOPATHOLOGY LABORATORY Gross Description Specimen A: Received is one formalin filled container labeled with the patient's name and designated right side neck. The specimen consists of a shave biopsy measuring [id number]. Jar 0. 11:27 AM T DERMATOPATHOLOGY LABORATORY Microscopic Description Specimen A. SKIN, right side neck: There is acanthosis consisting of fairly uniform squamous cells with eosinophilic cytoplasm and squamous eddies. 3 11:27 AM T DERMATOPATHOLOGY LABORATORY Disclaimer An external and internal positive and negative controls are appropriate for the histochemical, immunohistochemical and immunofluorescence stain(s) in this case (if any), except where stated explicitly. The performance characteristics of the stain(s) cited in this report were developed and its performance characteristic determined by the Dermatopathology Laboratory at [facility], directed by Dr. Didi Brock. These tests need not be, and therefore are not, approved by the [place] Food and Drug Administration. The tests are used for clinical purposes. Billing Codes Specimen Charges Stain Charges 81141 1 3 11:27 AM CDT DERMATOPATHOLOGY LABORATORY Embedded Images 11:27 AM T DERMATOPATHOLOGY LABORATORY Pathology/Cytolog y TISSUE SPECIMEN FROM SKIN / Unknown 03/11/2023 03/12/2023 12:50 PM CDT Juanito Tate MD LAB - PATHOLOGY/CYTOLOGY ORD ERABLES Final Result DERMATOPATHOLOGY LABORATORY [facility] - Department of Dermatology [address] [place] [address], [facility] [phone] documented in this encounter Visit Diagnoses Not on filedocumented in this encounter
--- OUTSIDE RECORDS SUMMARY | 2025-07-05 09:43 | XMS_ITS | Clinical Summary ---
Author Organization [facility] Address [address] [place] [address] Care Team Providers Care Merchandise Buyer Name Role Phone Unavailable Primary Care Provider Unavailabl e Source Comments [facility],non-owned Affiliates and Associated Physician Practices is amultiple site organization consisting of ambulatory clinics and hospital sitesin [place], [place] and [place]. This disclosure is being madepursuant to the Care Everywhere program and may not contain all information available regarding this patient. 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 Gender Identity Not on file Sexual Orientation Not on file Plan of Treatment Health Maintenance Due Date Last Done Comments COLOGUARD (AGES 45-75) - COL ON CA SCREENING 1950 COLON MONITORING 1950 COLONOSCOPY - COLON CA SCREENING 1950 CT COLONOGRAPHY - COLON CA SCREENING 1950 Colorectal Cancer Screening 1950 FIT - COLON CA SCREENING 1950 FLEX SIG - COLON CA SCREENING 1950 LIPID TESTING 1950 HEPATITIS C SCREENING 08/26/1968 DTAP/TDAP/TD VACCINES (1 - Tdap) 1969 PNEUMOCOCCAL VACCINE 50+ (1 of 1 - PCV) 2000 ZOSTER VACCINE (1 of 2) 2000 COVID-19 VACCINE ( - 2023-2 5 season) 2024 DEPRESSION SCREENING 11/23/2024 MEDICARE AWV CALENDAR YEAR 2024 INFLUENZA VACCINE (#1) 2025 Respiratory Syncytial Virus (RSV) Vaccine Pt: or over 60 yrs (1 - 1-dose 75+ series) 2025 HEPATITIS B VACCINE Aged Out No longe r eligible based on patient's age to complete this topic HIB VACCINE Aged Out No longer eligi ble based on patient's age to complete this topic HPV VACCINE Aged Out No longer eligi ble based on patient's age to complete this topic MENINGOCOCCAL (Group B) VACC INE SHARED DECISION-MAKING Aged Out No longer eligibl e based on patient's age to complete this topic MENINGOCOCCAL GROUPS A/C/Y/W VACCINE Aged Out No longer eligible b ased on patient's age to complete this topic Insurance AETNA AETNA MEDICARE ADV
--- OUTSIDE RECORDS SUMMARY | 2025-07-05 09:43 | XMS_ITS | Clinical Summary ---
Author Organization [facility] Address [address] [place] [address] Care Team Providers Care Aerospace Engineer Name Role Phone Jair Jaramillo MD Primary Care Provider [phone] Allergies No known active allergies Medications atorvastatin (LIPITOR) 10 mg tablet TK 1 T PO QD 3 8 Active losartan (COZAAR) 25 mg tablet TK 1 T PO D 2 8 Active tamsulosin (FLOMAX) 0.4 mg capsule TK ONE C PO QD 1/2 HOUR FOLLOWING THE SAME MEAL EACH DAY 3 8 Active loqaldid-gip-zc lic-vit K-lycop (ONE-A-DAY MEN'S MULTIVITAMIN) 400-20-300 mcg Tablet Take by mouth. Activ e vitamin E 400 unit capsule Take 400 Units by mouth daily. Active calcium-vitamin D3 (CALTRATE 600+D) 600 mg(1,500mg) -200 unit Tablet Take by mouth. Activ e Zinc Gluconate 100 mg Tablet Take by mouth. A ctive magnesium oxide 250 mg Tablet Take by mouth. A ctive aspirin (ECOTRIN EC) 81 mg Tablet, Delayed Release (E.C.) Take 81 mg by mouth daily. Active ascorbic acid, vitamin C, (VITAMIN C) 1,000 mg Tablet Take 1,000 mg by mouth daily. Active Active Problems Problem Noted Date Diagnosed Date Leukopenia 07/20/2018 Macrocytosis without anemia 07/20/2018 Family History Medical History Relation Name Comments Breast Cancer Mother Breast Cancer Sister Relation Name Status Comments Father Mother Sister Alive Social History Tobacco Use Types Packs/Day Years Used Date Smoking Tobacco: Former Cigarettes Q uit: 07/20/1987 Smokeless Tobacco: Never Alcohol Use Standard Drinks/Week Comments No 0 (1 standard drink = 0.6 oz pur e alcohol) Sex and Gender Information Value Date Recorded Sex Assigned at Not on file Legal Sex Male 8:59 AM CDT Gender Identity Not on file Sexual Orientation Not on file Last Filed Vital Signs Vital Sign Reading Time Taken Comments Blood Pressure 162/86 07/20/2018 1:07 PM CDT Pulse 63 07/20/2018 1:07 PM CDT Temperature 36.8 C (98.3 F) 07/20/2018 1:07 PM CDT Respiratory Rate - - Oxygen Saturation 97% 07/20/2018 1:07 PM CDT Inhaled Oxygen Concentration - - Weight 97.4 kg (214 lb 12.8 oz) 07/20/2018 1:07 PM CDT Height 198.1 cm (6' 6) 07/20/2018 1:07 PM CDT Body Mass Index 24.82 07/20/2018 1:07 PM CDT Plan of Treatment Health Maintenance Due Date Last Done Comments DTAP/TDAP/TD VACCINES (1 - Tdap) 1969 COLORECTAL SCREENING 1995 Colorectal Cancer Screening 1995 FIT-DNA Q 3 years 1995 FIT/FOBT Q 1 year 1995 Flex Sig/CT Colonography Q 5 years 1995 PNEUMOCOCCAL VACCINE 50+ YEARS (1 of 1 - PCV) 08/31/20 00 ZOSTER VACCINE (1 of 2) 2000 INFLUENZA VACCINE (#1) 2025 RSV VACCINE (60+ or ) (1 - 1-dose 75+ series) 2025 Insurance [facility] [id number] [place] [address] Care Teams Aerospace Engineer Relationship Specialty Start Date End Date Jair Jaramillo MD [address] [place] [address] PCP - General Family Practice 06/29/18
--- OUTSIDE RECORDS SUMMARY | 2025-07-05 09:43 | XMS_ITS | Encounter Summary ---
Author Organization [facility] Address [address] [facility] [place] [address] Care Team Providers Care Greenhouse Specialist Name Role Phone Unavailable Primary Care Provider Unavailabl e Encounter Details Date Type Department Care Team (Late st Contact Info) Description 11/11/2023 Lab Requisition [facility] - DermPath Lab [address] [place] [address] Juanito Tate MD [address] [place] [address] Social History Tobacco Use Types Packs/Day Years Used Date Smoking Tobacco: Never Assessed Sex and Gender Information Value Date Recorded Sex Assigned at Not on file 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 Gender Identity Not on file Sexual Orientation Not on file documented as of this encounter Plan of Treatment Not on file documented as of this encounter Procedures Procedure Name Priority Date/Time Associated Diagnosis Comments DERMATOPATHOLOGY Routine 11/10/2023 3:33 AM ASSISTANT REFINERY OPERATOR documented in this encounter Results * DERMATOPATHOLOGY (11/10/2023 3:33 AM ASSISTANT REFINERY OPERATOR) Case Report Dermatopathology Report Case: [id number] Authorizing Provider: Juanito Tate MD Collected: 11/10/2023 03:33 AM Ordering Location: [facility] DermPath Lab Received: 11/11/2023 03:41 PM Pathologist: Hilary Mejia MD Specimen: Skin, posterior midline neck 10:26 AM ASSISTANT REFINERY OPERATOR DERMATOPATHOLOGY LABORATORY Final Diagnosis Specimen A. 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 The specimen consists of a shave biopsy measuring 10x8x1 mm. Jar 0. 3 10:26 AM [facility] DERMATOPATHOLOGY LABORATORY Microscopic Description Specimen A. SKIN, posterior midline neck: The epidermis shows acanthosis and expansion by keratinocytes with ample pink cytoplasm. Attached to the undersurface of the the expanded epidermis there are nests of basaloid cells with a subjacent thickened basement membrane. The hematoxylin and eosin stain is reviewed; immunohistochemical stains are performed to further characterize this lesion. BerEp4 focally highlights the basaloid nests (repeated to ensure technical adequacy). FLORENTIN displays patchy weak positivity. The Ki67 proliferation index is increased. GW61-mnebmehk Mart cells are absent. Additional deeper sections were obtained and reviewed. COMMENT: While I considered the possibility of a tumor of the follicular infundibulum, the presence of cytologic atypia, an increased proliferation index, and absence of AV10-etwxpbwn Mart cells favor classification as an intraepidermal/in-s itu carcinoma. The absence of strong BerEp4 positivity speaks against a basal cell carcinoma. Complete removal of this lesion is recommended. This case has been reviewed by Dr. Sneha Perez who concurs with the diagnosis. 10:26 AM [facility] DERMATOPATHOLOGY LABORATORY Disclaimer An external and internal positive and negative controls are appropriate for the histochemical, immunohistochemical and immunofluorescence stain(s) in this case (if any), except where stated explicitly. The performance characteristics of the stain(s) cited in this report were developed and its performance characteristic determined by the Dermatopathology Laboratory at [facility], directed by Dr. Didi Brock. These tests need not be, and therefore are not, approved by the [place] Food and Drug Administration. The tests are used for clinical purposes. Billing Codes Specimen Charges Stain Charges 71239 1 86720 25928 42055 92829 1 1 1 1 3 10:26 AM [facility] DERMATOPATHOLOGY LABORATORY Embedded Images 3 10:26 AM ASSISTANT REFINERY OPERATOR DERMATOPATHOLOGY LABORATORY Pathology/Cytolo gy TISSUE SPECIMEN FROM SKIN / Unknown 11/10/2023 3:33 AM ASSISTANT REFINERY OPERATOR 11/11/2023 3:41 PM ASSISTANT REFINERY OPERATOR us Juanito Tate MD LAB - PATHOLOGY/CYTOLOGY ORD ERABLES Final Result DERMATOPATHOLOGY LABORATORY [facility] - Department of Dermatology [facility] Medicine [address] [place] [address], [address] [phone] documented in this encounter Visit Diagnoses Not on filedocumented in this encounter
== END 2025-07-05 09:32 | disposition home or self-care (01) ==
PROVIDERS: PCP Family Medicine
DX: M16.12 Unilateral primary osteoarthritis, left hip (principal)
CPT/HCPCS: 20610; 77002; J1010; J2003; Q9966

== ENCOUNTER 2025-07-22 12:13 | Emergency (ER) | payer MEDICARE, SELFPAY ==
--- OUTSIDE RECORDS SUMMARY | 2025-07-22 12:17 | XMS_ITS | Encounter Summary ---
Author Organization [facility] Address [address] [place] [address] [place] [address] Care Team Providers Care Tennis Director Name Role Phone Unavailable Primary Care Provider Unavailabl e Encounter Details Date Type Department Care Team (Late st Contact Info) Description 03/12/2023 Lab Requisition [facility] DermPath Lab [address] [place] [address] Juanito Tate MD [address] [place] [address] Social History Tobacco Use Types Packs/Day Years Used Date Smoking Tobacco: Never Assessed Sex and Gender Information Value Date Recorded Sex Assigned at Not on file 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 Gender Identity Not on file Sexual Orientation Not on file documented as of this encounter Plan of Treatment Not on file documented as of this encounter Procedures Procedure Name Priority Date/Time Associated Diagnosis Comments DERMATOPATHOLOGY Routine 03/11/2023 12:0 0 AM CDT documented in this encounter Results * DERMATOPATHOLOGY (03/11/2023 12:00 AM CDT) Case Report Dermatopathology Report Case: [id number] Authorizing Provider: Juanito Tate MD Collected: 03/11/2023 12:00 AM Ordering Location: [facility] DermPath Lab Received: 03/12/2023 12:50 PM Pathologist: [...] specimen consists of a shave biopsy measuring [id number]. Jar 0. 11:27 AM T DERMATOPATHOLOGY LABORATORY [...] determined by the Dermatopathology Laboratory at [facility], directed by Dr. Didi Brock. These tests need not be, and therefore are not, approved by the [place] Food and Drug Administration. The tests are used for clinical purposes. Billing Codes Specimen Charges Stain Charges 00172 1 3 11:27 AM CDT DERMATOPATHOLOGY LABORATORY Embedded Images 11:27 AM T DERMATOPATHOLOGY LABORATORY Pathology/Cytolog y TISSUE SPECIMEN FROM SKIN / Unknown 03/11/2023 03/12/2023 12:50 PM CDT Juanito Tate MD LAB - PATHOLOGY/CYTOLOGY ORD ERABLES Final Result DERMATOPATHOLOGY LABORATORY [facility] - Department of Dermatology [address] [place] [address], [facility] [phone] documented in this encounter Visit Diagnoses Not on filedocumented in this encounter
--- OUTSIDE RECORDS SUMMARY | 2025-07-22 12:17 | XMS_ITS | Clinical Summary ---
Author Organization [facility] Address [address] [place] [address] Care Team Providers Care Phosphoric Acid Operator Name Role Phone Jair Jaramillo MD Primary Care Provider [phone] Allergies No known active allergies Medications atorvastatin (LIPITOR) 10 mg tablet TK 1 T PO QD 3 8 Active losartan (COZAAR) 25 mg tablet TK 1 T PO D 2 8 Active tamsulosin (FLOMAX) 0.4 mg capsule TK ONE C PO QD 1/2 HOUR FOLLOWING THE SAME MEAL EACH DAY 3 8 Active qjtmzmol-boe-jh lic-vit K-lycop (ONE-A-DAY MEN'S MULTIVITAMIN) 400-20-300 mcg [...] (1 - 1-dose 75+ series) 2025 Insurance [facility] [id number] Care Teams Phosphoric Acid Operator Relationship Specialty Start Date End Date Jair Jaramillo MD [address] [place] [address] PCP - General Family Practice 06/29/18
--- OUTSIDE RECORDS SUMMARY | 2025-07-22 12:17 | XMS_ITS | Clinical Summary ---
Author Organization [facility] Address [address] [place] [address] Care Team Providers Care Manager Ship Name Role Phone Unavailable Primary Care Provider Unavailabl e Source Comments [facility],non-owned Affiliates and Associated Physician Practices is amultiple site organization consisting of ambulatory clinics and hospital sitesin [place], [place], [place] and [place]. This disclosure is being madepursuant to the Care Everywhere program and may not contain all information available regarding this patient. 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 Gender Identity Not on file Sexual Orientation [...] VACCINE (1 of 2) 2000 COVID-19 VACCINE (1 - 2023-2 5 season) 2024 DEPRESSION SCREENING [...] Priority Date/Time Associated Diagnosis Comments DERMATOPATHOLOGY Routine 07/18/2025 10:3 7 AM CDT from Last 3 Months Results * DERMATOPATHOLOGY (07/18/2025 10:37 AM CDT) Case Report Dermatopathology Report Case: [id number] Authorizing Provider: Alyssa Her DO Collected: 07/18/2025 10:37 AM Ordering Location: [facility] - Received: 07/19/2025 08:37 AM DermPath Lab Pathologist: Dorothy Mejia MD Specimens: A) - Skin, left anterior low extremity B) - Skin, left medial low extremity C) - Skin, right forearm 5 5:51 PM CDT DERMATOPATHOLOGY LABORATORY Final Diagnosis Specimen A. SKIN, left anterior low extremity: BASAL CELL CARCINOMA, NODULAR TYPE (C44.719) Specimen B. 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 SKIN, right forearm: BASAL CELL CARCINOMA, NODULAR TYPE (C44.612) (see microscopic description) 5 5:51 PM CDT DERMATOPATHOLOGY LABORATORY at 1751 CDT Clinical History A-C: R/O NMSC 5:51 PM T DERMATOPATHOLOGY LABORATORY Gross Description Specimen A: Received is one formalin filled container labeled with the patient's name and designated left anterior low extremity. The specimen consists of a shave biopsy measuring 6x5x1 mm. Jar 0. Specimen B: Received is one formalin filled container labeled with the patient's name and designated left medial low extremity. The specimen consists of a shave biopsy measuring 9x6x1 mm. Jar 0. Specimen C: Received is one formalin filled container labeled with the patient's name and designated right forearm. The specimen consists of a shave biopsy measuring 6x5x1 mm. Jar 0. 5:51 PM T DERMATOPATHOLOGY LABORATORY Microscopic Description Specimen A. SKIN, left anterior low extremity: Within the dermis there are aggregates of basaloid cells with a high nuclear to cytoplasmic ratio and peripheral palisading. Specimen B. SKIN, left medial low extremity: The epidermis shows parakeratosis, full thickness disorderly maturation of keratinocytes, mitoses at different levels, and dyskeratotic cells. Specimen C. SKIN, right forearm: Within the dermis there are aggregates of basaloid cells with a high nuclear to cytoplasmic ratio and peripheral palisading. Additional deeper sections were obtained and reviewed. 5:51 PM T DERMATOPATHOLOGY LABORATORY Disclaimer An external and internal positive and negative controls are appropriate for the histochemical, immunohistochemical and immunofluorescence stain(s) in this case (if any), except where stated explicitly. The performance characteristics of the stain(s) cited in this report were developed and its performance characteristic determined by the Dermatopathology Laboratory at [facility], directed by Dr. Didi Brock. These tests need not be, and therefore are not, approved by the [place] Food and Drug Administration. The tests are used for clinical purposes. Billing Codes Specimen Charges Stain Charges 27327 95577 13998 1 1 1 5:51 PM CDT DERMATOPATHOLOGY LABORATORY Embedded Images 5:51 PM CDT DERMATOPATHOLOGY LABORATORY Pathology/Cytology TISSUE SPECIMEN FROM SKIN / Unknown 07/18/2025 10:37 AM CDT 07/19/2025 8:37 AM CDT Miscellaneous samples (specimen) TISSUE SPECIMEN FROM SKIN / Unknown 07/18/2025 10:37 AM CDT 07/19/2025 8:37 AM CDT Miscellaneous samples (specimen) TISSUE SPECIMEN FROM SKIN / Unknown 07/18/2025 10:37 AM CDT 07/19/2025 8:37 AM CDT us Alyssa Gould Her DO LAB - PATHOLOGY/CYTOLOGY ORDERABLES Final Result DERMATOPATHOLOGY LABORATORY [facility] - Department of Dermatology [address], [address] [phone] from Last 3 Months Insurance AETNA AETNA MEDICARE ADV
--- OUTSIDE RECORDS SUMMARY | 2025-07-22 12:17 | XMS_ITS | Encounter Summary ---
Author Organization [facility] Address [address] [place] [address] [place] [address] Care Team Providers Care Automobile Mechanic Motor Name Role Phone Unavailable Primary Care Provider Unavailabl e Encounter Details Date Type Department Care Team (Late st Contact Info) Description 07/18/2025 Lab Requisition [facility] - DermPath Lab [address] [facility] [place] [address] Alyssa Her DO [address] [facility] [address] [place] [address] Social History Tobacco Use Types Packs/Day Years Used Date Smoking Tobacco: Never Assessed Sex and Gender Information Value Date Recorded Sex Assigned at Not on file 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 Gender Identity Not on file Sexual Orientation Not on file documented as of this encounter Plan of Treatment Not on file documented as of this encounter Procedures Procedure Name Priority Date/Time Associated Diagnosis Comments DERMATOPATHOLOGY Routine 07/18/2025 10:3 7 AM CDT documented in this encounter Results * DERMATOPATHOLOGY (07/18/2025 10:37 AM CDT) Case Report Dermatopathology Report Case: [id number] Authorizing Provider: Alyssa Her DO Collected: 07/18/2025 10:37 AM Ordering Location: [facility] - Received: 07/19/2025 08:37 AM DermPath Lab Pathologist: Dorothy Mejia MD Specimens: A) - Skin, left anterior low extremity B) - Skin, left medial low extremity C) - Skin, right forearm 5:51 PM CDT DERMATOPATHOLOGY LABORATORY Final Diagnosis Specimen A. SKIN, left anterior low extremity: BASAL CELL CARCINOMA, NODULAR TYPE (C44.719) Specimen B. 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 SKIN, right forearm: BASAL CELL CARCINOMA, NODULAR TYPE (C44.612) (see microscopic description) 5:51 PM T DERMATOPATHOLOGY LABORATORY at 1751 CDT Clinical History A-C: R/O NMSC 5:51 PM CDT DERMATOPATHOLOGY LABORATORY Gross Description Specimen A: Received [...] measuring 6x5x1 mm. Jar 0. 5:51 PM CDT DERMATOPATHOLOGY LABORATORY Microscopic Description Specimen A. SKIN, [...] determined by the Dermatopathology Laboratory at [facility], directed by Dr. Didi Brock. These tests need not be, and therefore are not, approved by the [place] Food and Drug Administration. The tests are used for clinical purposes. Billing Codes Specimen Charges Stain Charges 25783 59343 17629 1 1 1 5 5:51 PM CDT DERMATOPATHOLOGY LABORATORY Embedded Images 5 5:51 PM CDT DERMATOPATHOLOGY LABORATORY Pathology/Cytology TISSUE SPECIMEN FROM SKIN / Unknown 07/18/2025 10:37 AM CDT 07/19/2025 8:37 AM CDT Miscellaneous samples (specimen) TISSUE SPECIMEN FROM SKIN / Unknown 07/18/2025 10:37 AM CDT 07/19/2025 8:37 AM CDT Miscellaneous samples (specimen) TISSUE SPECIMEN FROM SKIN / Unknown 07/18/2025 10:37 AM CDT 07/19/2025 8:37 AM CDT us Alyssa Her DO LAB - PATHOLOGY/CYTOLOGY ORDERABLES Final Result DERMATOPATHOLOGY LABORATORY [facility] - Department of Dermatology [facility] Medicine [address] [place] [address], [address] [phone] documented in this encounter Visit Diagnoses Not on filedocumented in this encounter
--- OUTSIDE RECORDS SUMMARY | 2025-07-22 12:17 | XMS_ITS | Encounter Summary ---
Author Organization [facility] Address [address] [place] [address] Care Team Providers Care Technician Trainee Name Role Phone Unavailable Primary Care Provider Unavailabl e Encounter Details Date Type Department Care Team (Late st Contact Info) Description 11/11/2023 Lab Requisition [facility] - DermPath Lab [address] [place] [address] Juanito Tate MD [address] [place] [address] Social History Tobacco Use Types Packs/Day Years Used Date Smoking Tobacco: Never Assessed Sex and Gender Information Value Date Recorded Sex Assigned at Not on file Legal Sex Male 5:27 PM DIRECTOR OF SERVICES Gender Identity Not on file Sexual Orientation Not on file documented as of this encounter Plan of Treatment Not on file documented as of this encounter Procedures Procedure Name Priority Date/Time Associated Diagnosis Comments DERMATOPATHOLOGY Routine 11/10/2023 3:33 AM DIRECTOR OF SERVICES documented in this encounter Results * DERMATOPATHOLOGY (11/10/2023 3:33 AM DIRECTOR OF SERVICES) Case Report Dermatopathology Report Case: [id number] Authorizing Provider: Juanito Tate MD Collected: 11/10/2023 03:33 AM Ordering Location: [facility] DermPath Lab Received: 11/11/2023 03:41 PM Pathologist: Hilary Mejia MD Specimen: Skin, posterior midline neck 10:26 AM DIRECTOR OF SERVICES DERMATOPATHOLOGY LABORATORY Final Diagnosis Specimen A. 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 The specimen consists of a shave biopsy measuring 10x8x1 mm. Jar 0. 3 10:26 AM [facility] DERMATOPATHOLOGY LABORATORY Microscopic Description Specimen [...] positivity. The Ki67 proliferation index is increased. TT90-fwsijhye Mart cells are absent. Additional deeper sections were obtained and reviewed. COMMENT: While I considered the possibility of a tumor of the follicular infundibulum, the presence of cytologic atypia, an increased proliferation index, and absence of VX41-ttcrjtyb Mart cells favor classification as an intraepidermal/in-s itu carcinoma. The absence of strong BerEp4 positivity speaks against a basal cell carcinoma. Complete removal of this lesion is recommended. This case has been reviewed by Dr. Sneha Perez who concurs with the diagnosis. 10:26 AM [facility] DERMATOPATHOLOGY LABORATORY Disclaimer An external and internal positive and negative controls are appropriate for the histochemical, immunohistochemical and immunofluorescence stain(s) in this case (if any), except where stated explicitly. The performance characteristics of the stain(s) cited in this report were developed and its performance characteristic determined by the Dermatopathology Laboratory at [facility], directed by Dr. Didi Brock. These tests need not be, and therefore are not, approved by the [place] Food and Drug Administration. The tests are used for clinical purposes. Billing Codes Specimen Charges Stain Charges 60738 1 [id number] [id number] 1 1 1 1 3 10:26 AM [facility] DERMATOPATHOLOGY LABORATORY Embedded Images 3 10:26 AM DIRECTOR OF SERVICES DERMATOPATHOLOGY LABORATORY Pathology/Cytolo gy TISSUE SPECIMEN FROM SKIN / Unknown 11/10/2023 3:33 AM DIRECTOR OF SERVICES 11/11/2023 3:41 PM DIRECTOR OF SERVICES us Juanito Tate MD LAB - PATHOLOGY/CYTOLOGY ORD ERABLES Final Result DERMATOPATHOLOGY LABORATORY [facility] - Department of Dermatology [facility] [address] [place] [address], [address] [phone] documented in this encounter Visit Diagnoses Not on filedocumented in this encounter
--- OUTSIDE RECORDS SUMMARY | 2025-07-22 12:18 | XMS_ITS | Clinical Summary ---
Author Organization [facility] [place] [address] [facility] [address] Address [address] [place] [address] Care Team Providers Care Straightener And Aligner Name Role Phone Jair Jaramillo MD Primary Care Provider [phone] Allergies No known active allergies Medications tamsulosin [...] on file Legal Sex Male 10:45 PM [employer]CR[employer]E [employer] Gender Identity Not on file Sexual Orientation Not on file Obstetrics History Last Filed Vital Signs Vital Sign Reading Time Taken Comments Blood Pressure 158/90 10/01/2023 4:07 PM [employer]CRETE [employer] B[employer]ER Pulse 55 10/01/2023 4:07 PM CONCRETE [employer] B[employer]ER Temperature - - Respiratory Rate - - Oxygen Saturation 98% 10/01/2023 4:07 PM [employer]CR[employer]E [employer]ER Inhaled Oxygen Concentration - - Weight 97.5 [...] Pneumococcal vaccine 65+ Completed 08/06/2018, 06/23 Insurance PENDING SALE TO [employer] MEDICARE PENDING SALE TO [employer] Care Teams Straightener And Aligner Relationship Specialty Start Date End Date Jair Jaramillo MD PCP - General Family Medicine 06/11/23
[2025-07-22 12:24] VITALS: BP 112/69; PULSE 77; RESP 18; TEMP 36.5; O2SAT 100
--- NOTE | 2025-07-22 12:52 | ED.URI ---
HPI - URI/Sore Throat General Chief Complaint: Upper Respiratory Infection Stated Complaint: sinus infection/congestion Source: patient Mode of arrival: ambulatory Limitations: no limitations History of Present Illness HPI Narrative: 74-year-old male presents to [facility] with complaints of 6 day history of cough, nasal congestion, runny nose, hoarse voice. patient has been taking [id number] Mucinex, Sudafed, nasal spray with little relief. Patient is a nonsmoker. Patient denies sick contacts. Patient reports he gets similar symptoms 1-2 times here in generally requires antibiotic at that time. Patient reports that he did recently travel to [facility] last week MD elicited complaint: cough, rhinorrhea and nasal congestion Onset (ago): day(s) (6) Able to tolerate fluids by mouth: Yes Exacerbating factors: nothing Relieving factors: nothing Treatments prior to arrival: cold medicine Related Data Home Medications ?Medication ?Instructions ?Recorded ?Confirmed ?Last Taken ?Type ascorbic acid (vitamin C) 1,000 mg 500 mg PO BID 01/14/22 10/31/24 1 Day Ago History tablet ~09/10/22 calcium carbonate (Calcium 600) 600 mg PO DAILY 01/14/22 10/31/24 1 Day Ago History ~09/10/22 magnesium hydroxide 400 mg (170 mg 400 mg PO DAILY 01/14/22 10/31/24 Unknown History magnesium) chewable tablet multivitamin 1 tablet PO DAILY 01/14/22 10/31/24 Unknown History finasteride 5 mg tablet 5 mg PO DAILY 08/02/24 10/31/24 Unknown History losartan 25 mg tablet 25 mg PO DAILY 08/02/24 10/31/24 Unknown History nugenix 07/22/25 Unknown History vitamin E 268 mg (400 unit) capsule 268 mg PO DAILY 07/22/25 07/22/25 Unknown History Allergies Allergy/AdvReac Type Severity Reaction Status Date / Time No Known Allergies Allergy Verified 07/22/25 12:25 Review of Systems Constitutional: Constitutional: Denies chills, Denies fatigue, Denies fever(s) and Denies weakness ENT: Denies dysphagia, Denies vertigo, Denies dizziness, Denies epistaxis, Reports nasal congestion and Denies sore throat Cardiovascular: Cardiovascular: Denies chest pain Respiratory: Respiratory: Reports cough, Denies dyspnea and Denies wheezing Gastrointestinal: Gastrointestinal: Denies diarrhea, Denies nausea and Denies vomiting Musculoskeletal: Musculoskeletal: Denies arthralgias and Denies joint swelling Integumentary/Breasts: Skin/Breast: Denies erythema and Denies rash PMFSH Past Medical History Medical History Urinary frequency Acute non-recurrent frontal sinusitis Seasonal allergies Screening for malignant neoplasm of colon Screening for thyroid disorder Abnormal RBC Elevated LFTs Elevated glucose Need for shingles vaccine Surgical History Surgical History H/O arthroscopy of right knee Family History Family History Father Malignant neoplasm of prostate Hypertension Heart disease Sibling Breast cancer Mother Breast cancer Other Family history of malignant neoplasm of breast Social History Social History Smoking status: Former smoker Tobacco type: cigarettes Second hand tobacco smoke exposure: Yes Alcohol intake: current Drinks per week: 14 Substance use: never Substance use type: does not use Do You Feel Safe in your Home?: Yes Lack of Transportation: No Lack of Food: Never True Current Housing: I Have Housing Concerned About Future Housing: No Difficulty Paying Gas/Electric Bills: No Difficulty Paying for Meds: No Currently Unemployed: No Education: Master's Degree or Higher Difficulty w/ Childcare or Family Care: No Living arrangements: with family Occupation/Education: retired 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 There is no relevant family history pertinent to the presenting complaint. Exam Const: General: healthy appearing and no acute distress Nutritional Appearance: well nourished Orientation/consciousness: patient oriented x3 Limitations: no limitations HENMT: Head: normal to inspection Ears: external ears normal, TM's normal bilaterally and EAC's normal Face/Nose/Sinus: Normal external nose present Mouth: Yes Normal oral and palatal mucosa present, Yes lip normal and Yes moist mucous membranes Throat: posterior oropharynx normal and uvula midline Other: Moderate nasal congestion noted Eyes: Conjunctivae: conjunctivae normal Resp: Effort & Inspection: normal respiratory effort, not labored and no retractions Auscultation: wheezes expiratory wheezes and left upper Cardio: Rate: regular rate Rhythm: regular rhythm Heart sounds: no murmurs Skin: General skin exam: normal color Rashes: no rashes Neuro: General: patient oriented x3 and moves all extremities Speech: normal speech Gait exam (Neuro): Normal gait present Psych: Affect: normal affect Attitude: cooperative Course Course Level of Care: Express Care Visit Vital Signs Vital signs: Vital Signs Temperature 36.5 C 07/22/25 12:24 Pulse Rate 77 07/22/25 12:24 Respiratory Rate 18 07/22/25 12:24 Blood Pressure 112/69 07/22/25 12:24 Pulse Oximetry 100 07/22/25 12:24 Oxygen Delivery Room Air 07/22/25 12:24 Temperature 36.5 C 07/22/25 12:24 Pulse Rate 77 07/22/25 12:24 Respiratory Rate 18 07/22/25 12:24 Blood Pressure 112/69 07/22/25 12:24 Pulse Oximetry 100 07/22/25 12:24 Oxygen Delivery Room Air 07/22/25 12:24 MDM - URI/Sore Throat MDM Narrative Medical decision making narrative: patient declines chest x-ray at this time. encouraged patient to take antibiotic as prescribed as well as cough medication if needed. Encouraged patient to monitor symptoms very closely and to follow up with primary care provider if symptoms do not improve. Educated patient to proceed to the emergency room if symptoms worsen Differential Diagnosis Differential diagnosis: Likely otitis media, viral infection and bronchitis Critical Care Time Critical Care Time Critical Care Time: No Discharge Plan Discharge Clinical Impression: Acute upper respiratory infection Acute sinusitis Qualifiers: Sinusitis location: unspecified location Recurrence: non-recurrent Qualified Code(s): J01.90 - Acute sinusitis, unspecified Patient Disposition: Home Condition: Stable Instructions: Antibiotic Form, Sinusitis (ED), Upper Respiratory Infection (ED) Additional Instructions: Take antibiotic as prescribed Take cough medication if needed Rest increase fluids Follow-up primary care provider if symptoms do not improve Proceed to the emergency room if symptoms worsen Patient Language: Cymro Prescriptions: New doxycycline monohydrate 100 mg capsule 100 mg PO BID 10 Days Qty: 20 0RF benzonatate 100 mg capsule 100 mg PO BID PRN (Reason: cough) Qty: 20 0RF No Action vitamin E 268 mg (400 unit) capsule 268 mg PO DAILY nugenix albuterol sulfate 90 mcg/actuation HFA aerosol inhaler 2 puff inhalation Q4-6H PRN (Reason: shortness of breath or wheezing) 30 Days Qty: 8.5 0RF multivitamin Tablet 1 tablet PO DAILY calcium carbonate [Calcium 600] 600 mg calcium (1,500 mg) tablet 600 mg PO DAILY ascorbic acid (vitamin C) 1,000 mg tablet 500 mg PO BID magnesium hydroxide 400 mg (170 mg magnesium) tablet,chewable 400 mg PO DAILY losartan 25 mg tablet 25 mg PO DAILY finasteride 5 mg tablet 5 mg PO DAILY atorvastatin 10 mg tablet 10 mg PO DAILY Qty: 90 3RF tamsulosin 0.4 mg capsule See Rx Instructions .ROUTE .COMPLEX Qty: 180 1RF Dose Instruction: TAKE 2 CAPSULES BY MOUTH DAILY Rx Instructions: TAKE 2 CAPSULES BY MOUTH DAILY Follow-up/Referrals: Jair Jaramillo MD [Primary Care Provider, Family Practice] Time of Disposition: 13:00
== END 2025-07-22 13:04 | disposition home or self-care (01) ==
PROVIDERS: Emergency Provider Nurse Practitioner Family; PCP Family Medicine
DX: J06.9 Acute upper respiratory infection, unspecified (principal); J01.90 Acute sinusitis, unspecified; Z87.891 Personal history of nicotine dependence
CPT/HCPCS: 99213; G0463